=== PATIENT | male | born 1950 | race Caucasian/White ===

== ENCOUNTER 2023-11-27 07:51 | Outpatient (AMB) | payer MEDICARE, OTHER, SELFPAY ==
--- NOTE | 2023-11-27 08:00 | MHC.OFFVIS ---
Vital Signs 11/27/23 08:03 Height 5 ft 9 in Weight 175 lb BMI 25.8 BP 118/68 Blood Pressure Location Rt brachial Position Sitting Respiration 16 Pulse 73 Pulse Source Pulse Oximeter Pulse Oximetry (%) 97 Oxygen Delivery Method Room Air Intake Visit Reasons: ENP: Parkinsons - Confirmed Intake Note: Pt presents to the office for new pt evaluation for Parkinson's. 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 He was diagnosed with Parkinsons Disease 3 years ago by [facility]( ) when he presented with right UE rest tremors. He was started on carbidopa/levodopa , he did not tolerate . He saw Dr. Hernandez later - who started him on Rasagilline - but was costing him too much . He was restarted on carbidopa.levodopa - he did better. Dr. Hernandez left the practice so he did not have any follow up with neurology. Cognition- good Sleep- vivid dreams and dream enactment sometimes Mood-depression, anxiety - mild Motivation- fair Speech- softer - did speech therapy Occasional night time drooling Handwriting- OK Using utensils- slow Dressing- slow SHower- slow Turning in bed-OK slow Falls - none Gait- slow , mild off balance , he also has musculoskeletal issues. He feels like right foot is not moving No constipation - uses fiber and stool softener Bladder- normal No hallucinations No diplopia NO vertigo No h/o head injury No h/o exposure to chemicals NO fh/o parkinsons disease He is on carbidopa/levodopa 25/100 1.5 tabs tid and feel end of the dose wearing off. [facility] Medical History (Updated 11/27/23 @ 08:40 by Jodie Leyva MD) Parkinson's disease with fluctuating manifestations Arthritis Parkinson's disease without dyskinesia Vitamin D deficiency Diverticulosis Bladder cancer Asthma CHRIS (generalized anxiety disorder) HTN (hypertension) Surgical History (Updated 11/27/23 @ 08:02 by Rocio Rushing CMA) H/O total knee replacement Social History (Updated 11/27/23 @ 08:08 by Rocio Rushing CMA) Household Members: Spouse Housing: House Alcohol intake: current Comment: social Patient Tobacco Use Status: Former Tobacco user Years Smoked: Quit 17 years ago Physical Exam Vital Signs: Last Vital Signs Pulse 73 11/27/23 08:03 Resp 16 11/27/23 08:03 BP 118/68 11/27/23 08:03 Pulse Ox 97 11/27/23 08:03 Oxygen Delivery Method Room Air 11/27/23 08:03 BMI result Body Mass Index 25.8 Const General: cooperative, healthy appearing and no acute distress Nutritional Appearance: average body habitus Orientation/consciousness: patient oriented x3 HEENT Head: Yes normal to inspection Neck Other: mild antecollis and restricted range of motion Neuro Other: Mild decreased blink and facial expression Voice- hypophonia Right and Left UE mild amplitude rest tremors - intermittent Fine Finger movements - mild decreased caren R>L Alternating hand movements - decreased caren Hand movements - decreased caren Foot taps- decreased caren No cog wheel rigidity gait - stooped, mild slowness and decreased arm swing R>L General: patient oriented x3 and no focal motor deficits Cranial nerves: Yes CN's II-XII intact bilaterally, Yes Bilaterally intact EOM present, Yes Normal facial strength present and Yes Midline tongue present Cognition (Neuro): normal cognition Motor exam (neuro): 5/5 motor strength present throughout and Normal motor muscle tone present throughout Deep tendon reflexes (DTR's): Right triceps reflex intensity grade: 2+, Left triceps reflex intensity grade: 2+, Rt Biceps (C5, C6): 2+, Left biceps reflex intensity grade: 2+, Right brachioradialis reflex intensity grade: 2+, Left brachioradialis reflex intensity grade: 2+, Right patellar reflex intensity grade: 2+ and Left patellar reflex intensity grade: 2+ Coordination: fhnzwr-op-dexk test normal Assessment & Plan Assessment & Plan (1) Parkinson's disease with fluctuating manifestations: Code(s): G20.A2 - Parkinson's disease without dyskinesia, with fluctuations Category: Medical Plan Increase carbidopa /levodopa 25/100 1 1/2 tabs 6am 11am,4pm 9pm PT and speech therapy will consider adding entacapone next visit Orders: Orders PT Evaluation and Treatment Today G20.A2 - Parkinson's disease without dyskinesia, with fluctuations Referrals Speech and Hearing Referral G20.A2 - Parkinson's disease without dyskinesia, with fluctuations Medications: New carbidopa-levodopa 25-100 mg 1.5 tabs PO QID 180 tabs 6RF Coding Level of Care Code New Pt Level 4 (95744) Complex EM visit Add On G2211 Diagnoses Parkinson's disease with fluctuating manifestations G20.A2
[2023-11-27 08:03] VITALS: BP 118/68; PULSE 73; RESP 16; O2SAT 97; BMI 25.8
== END 2023-11-27 08:52 | disposition home or self-care (01) ==
PROVIDERS: PCP Hospitalist; Visit Provider Psychiatry & Neurology Neurology
DX: G20.A2 Parkinson's disease without dyskinesia, with fluctuations (principal)
CPT/HCPCS: 99204; G2211

== ENCOUNTER → 2023-11-27 07:51 | Outpatient (BNVA) | payer MEDICARE, OTHER, SELFPAY | PROVIDERS: PCP Hospitalist; Visit Provider Psychiatry & Neurology Neurology | DX: G20.A2 Parkinson's disease without dyskinesia, with fluctuations (principal) | CPT/HCPCS: 99202 ==

== ENCOUNTER 2024-03-11 10:53 | Outpatient (AMB) | payer MEDICARE, OTHER, SELFPAY ==
--- NOTE | 2024-03-11 11:00 | MHC.OFFVIS ---
Vital Signs 03/11/24 11:01 Height 5 ft 9 in Weight 176 lb BMI 26.0 BP 120/62 Blood Pressure Location Rt brachial Position Sitting Respiration 16 Pulse 74 Pulse Source Pulse Oximeter Pulse Oximetry (%) 96 Oxygen Delivery Method Room Air Intake Visit Reasons: follow up Parkinson's Intake Note: Pt presents to the office for a 3 month follow up for Parkinson's. 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 The increase in dose to sinemet 25/100 1 1/2 tabs qid helped but still has early wearing off usually in 4 hrs .( 6-11-4-9) he reports anxiety. he used to be very easy going. He went to PT with [facility] and [employer] [facility] .He practices the exercises. Cognition- good Sleep- vivid dreams and dream enactment sometimes Mood-depression, anxiety - mild Motivation- fair Speech- softer - did speech therapy Occasional night time drooling Handwriting- OK Using utensils- slow Dressing- slow SHower- slow Turning in bed-OK slow Falls - none Gait- slow , mild off balance , he also has musculoskeletal issues. He feels like right foot is not moving. no falls. No constipation - uses fiber and stool softener Bladder- normal No hallucinations No diplopia NO vertigo No h/o head injury History from initial visit-He was diagnosed with Parkinsons Disease 3 years ago by [facility]( ) when he presented with right UE rest tremors. He was started on carbidopa/levodopa , he did not tolerate . He saw Dr. Hernandez later - who started him on Rasagilline - but was costing him too much . He was restarted on carbidopa.levodopa - he did better. Dr. Hernandez left the practice so he did not have any follow up with neurology. No h/o head injury No h/o exposure to chemicals NO fh/o parkinsons disease He is on carbidopa/levodopa 25/100 1.5 tabs tid and feel end of the dose wearing off. [facility] Medical History Parkinson's disease with fluctuating manifestations Arthritis Parkinson's disease without dyskinesia Vitamin D deficiency Diverticulosis Bladder cancer Asthma CHRIS (generalized anxiety disorder) HTN (hypertension) Surgical History H/O total knee replacement Social History Household Members: Spouse Housing: House Alcohol intake: current Comment: social Patient Tobacco Use Status: Former Tobacco user Years Smoked: Quit 17 years ago Physical Exam Vital Signs: Last Vital Signs Pulse 74 03/11/24 11:01 Resp 16 03/11/24 11:01 BP 120/62 03/11/24 11:01 Pulse Ox 96 03/11/24 11:01 Oxygen Delivery Method Room Air 03/11/24 11:01 BMI result Body Mass Index 26.0 Const General: cooperative, healthy appearing and no acute distress Nutritional Appearance: average body habitus Orientation/consciousness: patient oriented x3 HEENT Head: Yes normal to inspection Neck Other: mild antecollis and restricted range of motion Neuro Other: Mild decreased blink and facial expression Voice- hypophonia Right and Left UE mild amplitude rest tremors - intermittent Fine Finger movements - mild decreased caren R>L Alternating hand movements - decreased caren Hand movements - decreased caren Foot taps- decreased caren No cog wheel rigidity gait - stooped, mild slowness and decreased arm swing R>L General: patient oriented x3 and no focal motor deficits Cranial nerves: Yes CN's II-XII intact bilaterally, Yes Bilaterally intact EOM present, Yes Normal facial strength present and Yes Midline tongue present Cognition (Neuro): normal cognition Motor exam (neuro): 5/5 motor strength present throughout and Normal motor muscle tone present throughout Deep tendon reflexes (DTR's): Right triceps reflex intensity grade: 2+, Left triceps reflex intensity grade: 2+, Rt Biceps (C5, C6): 2+, Left biceps reflex intensity grade: 2+, Right brachioradialis reflex intensity grade: 2+, Left brachioradialis reflex intensity grade: 2+, Right patellar reflex intensity grade: 2+ and Left patellar reflex intensity grade: 2+ Coordination: eiytrf-dr-uhxy test normal Assessment & Plan Assessment & Plan (1) Parkinson's disease with fluctuating manifestations: Code(s): G20.A2 - Parkinson's disease without dyskinesia, with fluctuations Category: Medical Qualifiers: Dyskinesia presence: without dyskinesia Qualified Code(s): G20.A2 - Parkinson's disease without dyskinesia, with fluctuations Plan I will trial him on carbidopa/levodopa.entacapone 37.5/150/200 1 tab qid D/C sinemet PT and speech therapy - continue exercises. Medications: New montrrgvh-pphtflfb-jmgbtctorc 37.5-150-200 mg 1 tab PO QID 120 tabs 6RF Discontinued carbidopa-levodopa 25-100 mg Discontinued Reason: Patient no longer taking 1.5 tabs PO QID 180 tabs 6RF Coding Level of Care Code Est Pt Level 4 (79767) Complex EM visit Add On G2211 Diagnoses Parkinson's disease without dyskinesia, with fluctuating manifestations G20.A2 Dyskinesia presence: without dyskinesia
[2024-03-11 11:01] VITALS: BP 120/62; PULSE 74; RESP 16; O2SAT 96; BMI 26.0
== END 2024-03-11 11:56 | disposition home or self-care (01) ==
PROVIDERS: PCP Hospitalist; Visit Provider Psychiatry & Neurology Neurology
DX: G20.A2 Parkinson's disease without dyskinesia, with fluctuations (principal)
CPT/HCPCS: 99214; G2211

== ENCOUNTER → 2024-03-11 10:53 | Outpatient (BNVA) | payer MEDICARE, OTHER, SELFPAY | PROVIDERS: PCP Hospitalist; Visit Provider Psychiatry & Neurology Neurology | DX: G20.A2 Parkinson's disease without dyskinesia, with fluctuations (principal) | CPT/HCPCS: 99212 ==